=== PATIENT | male | born 1970 | race Caucasian/White ===

== ENCOUNTER → 2021-04-16 | Outpatient (CLI) | payer BC ==
[~2021-04-16] MED LIST: ACHD5005 PO; ALBU8.5H4 IH; ALBUTEROL INH; AMOX-355 PO; AMOX500C2 PO; AZTH250C PO; EMPA25TA PO; GLIM4TAB5 PO; LIRA0.6P SQ; METF-397 PO; NAPR-1071 PO; NAPR-243 PO; PENICILLIN; PRAV20TA3 PO; PRD50T PO
--- NOTE | 2021-04-16 17:21 | Diagnostic Imaging Report ---
INDICATION: Microhematuria and back pain TECHNIQUE: Multiple contiguous axial images were obtained through the abdomen and pelvis without the use of intravenous contrast. Auto Exposure Controls were utilized during the CT exam to meet ALARA standards for radiation dose reduction. There is no previous CT for comparison Visualized portions of the lung bases are clear. There were no pleural fluid collections. There is no free intraperitoneal air. The liver appears unremarkable without contrast. The gallbladder is partially contracted but otherwise normal. The spleen and pancreas appear normal. Kidneys show no radiopaque stones or hydronephrosis. There is a tiny cyst in the right kidney laterally measuring less than a centimeter in size. The left adrenal gland appears normal. The right adrenal gland shows a small 1.7 x 1.2 cm nodule, which may be a small adenoma. There is no retroperitoneal mass or adenopathy. There is no ascites or abnormal fluid collection. Visualized bowel loops, including the appendix, are unremarkable. There is no pelvic mass or adenopathy. Urinary bladder appears grossly unremarkable. IMPRESSION: No urinary stones or hydronephrosis. Tiny presumed cyst in right kidney measuring less than a centimeter in size. Small right adrenal nodule, likely incidental adenoma. Dictated by: Dictated on workstation # [id number]
== END ==
LOC: RAD 16:15
PROVIDERS: ATTEND Urology
DX: E27.8 Other specified disorders of adrenal gland (principal); R31.29 Other microscopic hematuria
CPT/HCPCS: 74176

== ENCOUNTER → 2023-04-18 | Outpatient (CLI) | payer BC | LOC: CARD 14:40 | PROVIDERS: ATTEND Pediatrics | DX: I49.3 Ventricular premature depolarization (principal) | CPT/HCPCS: 93246 ==